=== PATIENT | female | born 1955 | race Caucasian/White ===

== ENCOUNTER → 2018-02-17 | Outpatient (CLI) | payer BC | LOC: COL.RAD 02-09 07:30 | DX: Z80.41 Family history of malignant neoplasm of ovary (principal); Z98.890 Other specified postprocedural states ==

== ENCOUNTER 2019-06-22 15:13 | Emergency (ER) | payer BC ==
[~2019-06-22] VITALS: Ht 167.6 cm; Wt 56.4 kg
[2019-06-22 15:17] VITALS: TEMP 98.2
[2019-06-22 15:50] LABS: BASO # 0.1 (0.0-0.2); BASO % 1.1 % (0.0-2.0); EOS # 0.1 (0.0-0.7); EOS % 1.8 % (0-4.0); GRAN # 4.1 (1.4-6.5); GRAN % 50.9 % (42.2-75.2); HEMATOCRIT 43.5 % (37.0-47.0); HEMOGLOBIN 14.3 g/dl (12.5-16.0); LYMPH # 2.8 (1.2-3.4); LYMPH % 35.4 % (20.0-51.0); MEAN CELL VOLUME 90 fl (80.0-100.0); MEAN CORPUSCULAR HEMOGLOBIN 30 pg (27.0-31.0); MEAN CORPUSCULAR HGB CONC 33 g/dl (33.0-37.0); MEAN PLATELET VOLUME 11.3 fl (7.4-10.4); MONO # 0.9 (0.1-0.6); MONO % 10.7 % (1.7-9.3); PLATELET COUNT 278 K/mm3 (130-400); RED BLOOD COUNT 4.85 M/mm3 (4.10-5.30); REDCELL DISTRIBUTION WIDTH-CV 14.7 % (11.5-14.5)
[2019-06-22 16:00] LABS: ALANINE AMINOTRANSFERASE 13 U/L (4-34); ALBUMIN 4.8 gm/dL (3.5-5.0); ALKALINE PHOSPHATASE 101 U/L (50-136); ANION GAP 8 mmol/L (7-16); AST,SGOT 24 U/L (15-37); BILIRUBIN,TOTAL 0.5 mg/dL (0.0-1.0); BLOOD UREA NITROGEN 15 mg/dL (7-17); CALCIUM 10.3 mg/dL (8.4-10.2); CARBON DIOXIDE 29 mmol/L (22-30); CHLORIDE 99 mmol/L (98-107); CREATININE, serum 0.73 (0.52-1.25); GLUCOSE 110 mg/dL (74-106); POTASSIUM 4.5 mmol/L (3.4-5.0); SODIUM 137 mmol/L (137-145); TOTAL PROTEIN 8.1 gm/dL (6.4-8.2)
[2019-06-22 16:07] LABS: C-REACTIVE PROTEIN < 0.5 mg/dL (0.0-0.9)
[2019-06-22 16:12] LABS: TROPONIN-I < 0.012 ng/mL (0.000-0.035)
[2019-06-22] MEDS ORDERED: NORVASC 5MG5 MG/TAB PO (16:28)
[2019-06-22 16:57] VITALS: BP 118/73; PULSE 64
== END 2019-06-22 16:50 | disposition home or self-care (01) ==
LOC: COL.ER 15:13
PROVIDERS: Emergency Medicine
DX: I10 Essential (primary) hypertension (principal)

== ENCOUNTER → 2020-01-16 | Outpatient (CLI) | payer BC ==
[~2020-01-16] MED LIST: NORVASC 5MG5 MG/TAB PO
== END ==
LOC: COL.RAD 02-09 07:30
DX: D25.9 Leiomyoma of uterus, unspecified (principal); Z80.41 Family history of malignant neoplasm of ovary

== ENCOUNTER 2020-04-25 10:30 | Outpatient (RCR) | payer BC | END 2020-04-25 11:52 | disposition home or self-care (01) | LOC: MKS.ESL.PT 10:30 | DX: M40.03 Postural kyphosis, cervicothoracic region (principal) ==